=== PATIENT | female | born 1975 ===

== ENCOUNTER → 2017-10-30 | Outpatient (CLI) | payer OTHER ==
[2017-10-24 11:27] VITALS: BMI 23.0
--- NOTE | 2017-10-29 15:59 | PAT Medication Instructions ---
Service Date Oct 29, 2017. Current Home Medication List Acetaminophen (Tylenol), 1,000 MG PO PRN Calcium Carbonate-Vitamin D (Calcium + D), 1 TAB PO QPM Naproxen (Aleve), 220 MG PO PRN Tramadol (Ultram), 50 MG PO PRN Medication Instructions For Your Scheduled Surgery - Check with surgeon for instructions: Naproxen (Aleve), 220 MG PO PRN - Take the following medications the morning of surgery with a sip of water: Acetaminophen (Tylenol), 1,000 MG PO PRN (okay to take up to 4 hours prior to surgery if needed) Tramadol (Ultram), 50 MG PO PRN(okay to take up to 4 hours prior to surgery if needed) - Take the following medications as scheduled the night before surgery: Acetaminophen (Tylenol), 1,000 MG PO PRN (if needed) Calcium Carbonate-Vitamin D (Calcium + D), 1 TAB PO QPM Tramadol (Ultram), 50 MG PO PRN (if needed) If you have any questions please call us at [phone] or [phone] or [phone]
[~2017-10-30] VITALS: Ht 154.9 cm; Wt 57.7 kg
[~2017-10-30] MED LIST: ACET-1256 PO; CALC600T9 PO; NAPR1TAB9 PO; TRAM-10 PO
[2017-10-30 14:34] VITALS: Ht 154.9 cm; Wt 57.7 kg
[2017-10-30 15:10] LABS: BASO % 0.5 %; BASO ABS # 0.04 K/uL (0-0.2); EOS % 1.7 %; EOS ABS # 0.15 K/uL (0-0.5); HEMATOCRIT 40.5 % (37-47); HEMOGLOBIN 13.4 g/dL (12.0-16.0); IG# 0.01 K/uL (0.00-0.02); LYMPH % 28.8 %; LYMPH ABS # 2.54 K/uL (1.2-3.4); MEAN CORPUSCULAR HEMOGLOBIN 30.5 pg (25-34); MEAN CORPUSCULAR HGB CONC 33.1 g/dl (32-36); MEAN PLATELET VOLUME 11.5 fL (7.4-10.4); MONO % 5.1 %; MONO ABS # 0.45 K/uL (0.11-0.59); NEUT % 63.8 %; NEUT ABS # 5.63 K/uL (1.4-6.5); PLATELET COUNT 255 K/uL (130-400); RED CELL DISTRIBUTION WIDTH SD 43.7 fL (36.4-46.3); WHITE BLOOD COUNT 8.82 K/uL (4.8-10.8)
[2017-10-30 15:18] LABS: CALCIUM 8.8 mg/dl (8.5-10.1); CREATININE 0.88 mg/dl (0.60-1.20); POTASSIUM 3.7 mmol/L (3.5-5.1)
--- NOTE | 2017-10-30 15:19 | DIAGNOSTIC IMAGING REPORT ---
CHEST 2 VIEWS ROUTINE HISTORY: Preop. COMPARISON: None. FINDINGS: The lungs are clear. Cardiac silhouette is normal in size. No pleural effusions. No pneumothorax. IMPRESSION: No acute process. Electronically signed by: Pernell Dixon M.D. 10/30/2017 3:18 PM Dictated Date/Time: 10/30/2017 3:17 PM
[2017-10-30 15:25] LABS: PTT PATIENT 27.5 SECONDS (21.0-31.0)
--- NOTE | 2017-11-14 11:26 | EDITING REQUIRED CODING QUERY ---
Valid Physician Order Needed A valid physician order must be submitted in order to properly bill for the service(s) provided, including date of service(s), valid diagnosis, and physician signature. If these tests are done on a recurring basis the original physican order must be submitted in order to code and bill for the service(s) provided. Please fax us the original, signed physician order so that we may expedite billing to [phone] DOS * CBC WITH AUTO DIFF * PRP * PTT * PT/INR * TYPE/SCREEN PROFILE * UA CLEAN CATCH * ECG * CHEST X RAY Thank you Janie [facility]
== END | disposition home or self-care (01) ==
LOC: C.LAB 08:00 → EDSTATUS 11-06 11:55
PROVIDERS: ATTEND Orthopaedic Surgery Orthopaedic Surgery of the Spine
DX: Z01.810 Encounter for preprocedural cardiovascular examination (principal); Z01.812 Encounter for preprocedural laboratory examination; Z01.818 Encounter for other preprocedural examination